=== PATIENT | male | born 1955 | race Caucasian/White ===

== ENCOUNTER 2022-05-17 09:39 | Emergency (ER) | payer MEDICARE, SELFPAY ==
--- NOTE | ~2022-05-17 | XR_ITS ---
EXAMINATION: XR chest 2V DATE: 05/17/2022 10:21 INDICATION: Shortness of breath. TECHNIQUE: Frontal and lateral views of the chest were obtained. COMPARISON: Chest CT 12/01/2017 FINDINGS: There is mild atelectasis in right mid and lower lung zones and left lower lung zone. No pl eural effusion or pneumothorax. The heart size is normal. There are old healed right rib fractures. IMPRESSION: 1. Mild atelectasis in right mid and lower lung zones and left lower lung zone. Reviewed, dictated and finalized at location A.
[2022-05-17 09:38] VITALS: BP 150/92; PULSE 101; RESP 20; TEMP 37.2; O2SAT 96
[2022-05-17 09:47] VITALS: O2SAT 96
[2022-05-17 09:48] VITALS: PULSE 100
--- NOTE | 2022-05-17 09:51 | ECG_ITS ---
Measurements Intervals [place] Rate: 102 P: 34 CA: 159 QRS: -63 QRSD: 83 T: 51 QT: 336 QTc: 438 Interpretive Statements SINUS TACHYCARDIA PREVIOUS INFERIOR WALL SC ABNORMAL ECG NO PREVIOUS ECG AVAILABLE FOR COMPARISON Electronically Signed On 05-17-2022 17:03:07 CDT by Kamran Powell M.D.
[2022-05-17 09:58] LABS: Basophils Absolute Auto 0.1 K/mm3 (0.0-0.1); Basophils Percent Auto 1.1 % (0.2-1.2); Eosinophils Absolute Auto 0.3 K/mm3 (0-0.3); Eosinophils Percent Auto 5.3 % (0-4.4); Hemoglobin 15.1 g/dL (14.0-18.0); Immature Granulocyte Absolute 0.04 K/mm3 (0.00-0.031); Immature Granulocyte Percent A 0.8 % (0-0.5); Lymphocytes Absolute Auto 1.01 K/mm3 (0.9-3.2); Lymphocytes Percent Auto 19.1 % (18.3-44.2); Mean Corpuscular HGB Conc 32.1 g/dl (32-36); Mean Corpuscular Hemoglobin 29.7 pg (26-34); Mean Corpuscular Volume 92.5 fl (80-100); Mean Platelet Volume 9.2 fl (7.4-10.4); Monocytes Absolute Auto 0.6 K/mm3 (0.1-0.6); Monocytes Percent Auto 11.7 % (2.6-8.5); Neutrophils Absolute Auto 3.3 K/mm3 (1.3-6.7); Platelet Count Result 230 k/mm3 (150-375); Red Blood Count 5.08 M/mm3 (4.6-6.20); White Blood Count 5.3 K/mm3 (4.5-10.0)
--- NOTE | 2022-05-17 10:07 | ED.SOB ---
HPI - SOB/Dyspnea General Chief Complaint: Shortness of Breath/Dyspnea Stated Complaint: resp distress Time Seen by Provider: 05/17/22 10:00 History of Present Illness HPI Narrative: Pt presents with progressively worsening SOB over the last several months. Pt stopped smoking in October and feels like it has been getting worse since then. Pt denies fever or CP. Pt has not seen a physician for any of this. Pt also feels like he is unable to fully void his urine and that has gotten much worse over the last couple of days. Pt denies CP ro fever. Related Data Allergies Allergy/AdvReac Type Severity Reaction Status Date / Time No Known Allergies Allergy Verified 05/17/22 09:49 Review of Systems Review of Systems: All systems reviewed & are unremarkable except as noted in HPI and below PMFSH Past Medical History Medical History Arthritis Back pain Hepatitis Surgical History Surgical History History of cholecystectomy History of total hip replacement Family History Family History Father Family history of blood dyscrasia Family history of alcoholism Family history of coronary artery disease Mother Hypertension Family history of cardiovascular disease Social History Social History Smoking status: Current every day smoker Tobacco type: cigarettes Alcohol intake: current Substance use: never Substance use type: does not use Exam Const: General: no acute distress Nutritional Appearance: obese Orientation/consciousness: patient oriented x3 Limitations: no limitations Eyes: Conjunctivae: conjunctivae normal EOM: EOMs intact bilaterally Neck: Neck: normal visual inspection and no lymphadenopathy Chest: Chest palpation & inspection: normal inspection of the chest Resp: Effort & Inspection: normal respiratory effort Auscultation: diminished lung sounds Cardio: Rate: regular rate Rhythm: regular rhythm GI: GI Palp: Yes Soft to palpation Auscultation: normal bowel sounds Skin: General skin exam: normal color Rashes: no rashes Neuro: General: patient oriented x3 and moves all extremities Speech: normal speech Extrem: General: edema Psych: Mental Status: mental status grossly normal Affect: normal affect Attitude: cooperative Course Vital Signs Vital signs: Vital Signs Temperature 98.9 F 05/17/22 09:38 Pulse Rate 101 H 05/17/22 09:38 Respiratory Rate 20 05/17/22 09:38 Blood Pressure 150/92 H 05/17/22 09:38 Pulse Oximetry 96 05/17/22 09:38 Oxygen Delivery Nasal Cannula 05/17/22 09:38 Oxygen Flow Rate 6 05/17/22 09:38 Temperature 98.9 F 05/17/22 09:38 Pulse Rate 98 05/17/22 13:59 Respiratory Rate 20 05/17/22 13:59 Blood Pressure 101/81 05/17/22 13:59 Pulse Oximetry 95 05/17/22 13:59 Oxygen Delivery Nasal Cannula 05/17/22 09:47 Oxygen Flow Rate 6 05/17/22 09:47 MDM - SOB/Dyspnea Lab Data Result diagrams: 05/17/22 10:25 05/17/22 10:25 Labs: Lab Results 05/17/22 05/17/22 05/17/22 Range/Units 09:52 09:52 10:25 WBC 5.3 5.3 (4.5-10.0) K/mm3 RBC 5.08 5.06 (4.6-6.20) M/mm3 Hgb 15.1 14.9 (14.0-18.0) g/dL Hct 47.0 46.5 (42.0-52.0) % MCV 92.5 91.9 (80-100) fl MCH 29.7 29.4 (26-34) pg MCHC 32.1 32.0 (32-36) g/dl RDW 14.0 13.9 (11.5-14.5) % Plt Count 230 238 (150-375) k/mm3 MPV 9.2 9.4 (7.4-10.4) fl Immature Gran % (Auto) 0.8 H 0.8 H (0-0.5) % Neut % (Auto) 62.0 63.5 (45.5-73.1) % Lymph % (Auto) 19.1 18.4 (18.3-44.2) % [place] % (Auto) 11.7 H 11.2 H (2.6-8.5) % Eos % (Auto) 5.3 H 5.1 H (0-4.4) % Baso % (Auto) 1.1 1.0 (0.2-1.2) % Lymph # (Auto) 1.01 0.97 (0.9-3.2) K/mm3 [place] # (Auto) 0.6 0.6 (0.1
[2022-05-17] MEDS: ALBUTEROL SULFATE NEB 2.5 MG/3 ML INH 5 MG INHALATION (10:14)
[2022-05-17] MEDS: IPRATROPIUM BR 0.02% INH SOLN 0.5 MG/2.5 ML VIAL INHALATION (10:15)
[2022-05-17 10:19] LABS: Alanine Aminotransferase 27 U/L (6-50); Albumin Level 4.1 g/dL (3.5-5.1); Alkaline Phosphatase 77 U/L (38-126); Anion Gap 8 mmol/L (8-16); Aspartate Amino Transferase 44 U/L (17-59); Bilirubin,Total 1.2 mg/dL (0.2-1.3); Blood Urea Nitrogen 13 mg/dL (9-20); Calcium 9.4 mg/dL (8.4-10.2); Carbon Dioxide 37 mmol/L (22-30); Chloride 88 mmol/L (98-107); Estimated CRCL calculation 119 ml/min; Estimated Glomerular Filt Rate > 60; Glucose 177 mg/dL (65-110); Potassium 4.8 mmol/L (3.4-5.0); Sodium 133 mmol/L (137-145)
[2022-05-17 10:23] VITALS: PULSE 94; RESP 34
[2022-05-17 10:49] LABS: Basophils Absolute Auto 0.1 K/mm3 (0.0-0.1); Eosinophils Absolute Auto 0.3 K/mm3 (0-0.3); Eosinophils Percent Auto 5.1 % (0-4.4); Hematocrit 46.5 % (42.0-52.0); Hemoglobin 14.9 g/dL (14.0-18.0); Immature Granulocyte Absolute 0.04 K/mm3 (0.00-0.031); Immature Granulocyte Percent A 0.8 % (0-0.5); Lymphocytes Absolute Auto 0.97 K/mm3 (0.9-3.2); Lymphocytes Percent Auto 18.4 % (18.3-44.2); Mean Corpuscular Hemoglobin 29.4 pg (26-34); Mean Corpuscular Volume 91.9 fl (80-100); Mean Platelet Volume 9.4 fl (7.4-10.4); Monocytes Absolute Auto 0.6 K/mm3 (0.1-0.6); Monocytes Percent Auto 11.2 % (2.6-8.5); Neutrophils Absolute Auto 3.3 K/mm3 (1.3-6.7); Neutrophils Percent Auto 63.5 % (45.5-73.1); Platelet Count Result 238 k/mm3 (150-375); Red Blood Count 5.06 M/mm3 (4.6-6.20); Red Cell Distribution Width 13.9 % (11.5-14.5); White Blood Count 5.3 K/mm3 (4.5-10.0)
[2022-05-17 10:58] LABS: Alanine Aminotransferase 27 U/L (6-50); Alkaline Phosphatase 82 U/L (38-126); Anion Gap 8 mmol/L (8-16); Aspartate Amino Transferase 31 U/L (17-59); Bilirubin,Total 1.1 mg/dL (0.2-1.3); Blood Urea Nitrogen 12 mg/dL (9-20); Calcium 9.4 mg/dL (8.4-10.2); Carbon Dioxide 36 mmol/L (22-30); Chloride 89 mmol/L (98-107); Estimated CRCL calculation 119 ml/min; Estimated Glomerular Filt Rate > 60; Glucose 169 mg/dL (65-110); Magnesium 1.7 mg/dL (1.6-2.3); Potassium 4.5 mmol/L (3.4-5.0); Sodium 133 mmol/L (137-145)
[2022-05-17 11:03] LABS: Partial Thromboplastin Time 26.6 SECONDS (22.3-36.8)
[2022-05-17 11:10] LABS: NT Pro B Type Natriuretic Pept 342 pg/mL (5-100); Troponin I < 0.012 ng/mL (0.000-0.034)
[2022-05-17 12:44] LABS: Appearance Urine Slightly Cloudy (Clear); Bilirubin Urine Negative (Negative); Color Urine Yellow (Yellow); Glucose Urine UA Negative (Negative); Ketones Urine Negative (Negative); Leukocyte Esterase Ur 3+ LEU/UL (Negative); Nitrate Urine Negative (Negative); Protein Urine Negative (Negative); Specific Grav Ur 1.015 (1.001-1.035); Urobilinogen Urine 0.2 mg/dL (<2.0)
[2022-05-17 12:45] LABS: Add Urine Microscopic? YES; Blood Urine Trace-Intact (Negative)
[2022-05-17 12:47] LABS: Bacteria Urine Trace /hpf; Budding Yeast Urine Present /hpf; Mucus Urine Rare /lpf; WBC Clumps Urine Present /HPF; WBC Urine >75 /hpf
[2022-05-17 13:10] VITALS: BP 113/82; PULSE 93; RESP 20; O2SAT 98
[2022-05-17 13:59] VITALS: BP 101/81; PULSE 98; RESP 20; O2SAT 95
== END 2022-05-17 14:01 | disposition home or self-care (01) ==
PROVIDERS: Emergency Provider Emergency Medicine; PCP Internal Medicine
DX: J44.9 Chronic obstructive pulmonary disease, unspecified (principal); N40.1 Benign prostatic hyperplasia with lower urinary tract symptoms; R35.0 Frequency of micturition; M19.90 Unspecified osteoarthritis, unspecified site; Z87.891 Personal history of nicotine dependence; Z96.649 Presence of unspecified artificial hip joint; Z79.01 Long term (current) use of anticoagulants; R00.0 Tachycardia, unspecified; R94.31 Abnormal electrocardiogram [ECG] [EKG]
CPT/HCPCS: 36415; 71046; 80053; 81001; 83735; 83880; 84484; 85025; 85610; 85730; 87086; 93005; 94640; 99284

== ENCOUNTER 2022-10-19 06:03 | Inpatient (IN) | payer MEDICARE, SELFPAY ==
[2022-10-19] VITALS (27 sets, daily range): BP systolic 114–171; BP diastolic 55–93; PULSE 102–124; RESP 16–90; TEMP 36.6–36.8; O2SAT 90–100
--- NOTE | ~2022-10-19 | XR_ITS ---
EXAMINATION: XR chest 1V portable DATE: 10/19/2022 07:07 INDICATION: Shortness of breath. TECHNIQUE: A single frontal view of the chest was obtained. COMPARISON: Chest single view 05/17/2022, chest CT 12/01/2017 FINDINGS: There is mild atelectasis in the lower lung zones. No pleural effusion or pneumothorax. The heart size is normal. There are old healed right rib fractures. IMPRESSION: 1. Mild atelectasis in the lower lung zones. Reviewed, dictated and finalized at location A. UCTION WORKER
--- NOTE | ~2022-10-19 | CT_ITS ---
EXAMINATION: CTA chest PE protocol DATE: 10/19/2022 08:02 INDICATION: Hypoxia. Tachycardia. TECHNIQUE: Computed tomography angiography (CTA) of the chest was performed with 100 mL Omnipaque-350 intravenous contrast timed to evaluate the pulmonary arteries. Coronal maximum intensity projection 3D-reconstructions were created by the technologist. Automated exposure control and iterative reconst ruction technique were employed. The dose-length product was 2046.68 mGy-cm. COMPARISON: Chest CT 12/01/2017 FINDINGS: There are mild groundglass opacities in the upper lobes. There is atelectasis in the lungs bilaterally, worst in the lower lobes. There are calcified pleural plaques on the right. There is a t race left pleural effusion. The heart size is normal. No pericardial effusion. There are coronary art hattie calcifications. There is no pulmonary embolus. There are changes of cholecystectomy. There is a m oderate-sized sliding hiatal hernia. There are old healed right rib fractures. There is severe right glenohumeral joint osteoarthritis. There is severe cervical and thoracic spondylosis. IMPRESSION: 1. No pulmonary embolus. Sensitivity is mildly decreased by motion artifact. 2. Mild groundglass opacities in the upper lobes, consistent with inflammation/infection versus mild pulmonary edema. 3. Moderate-sized sliding hiatal hernia. Reviewed, dictated and finalized at location A. Y BACTERIOLOGIST IMPRESSION: 1. No pulmonary embolus. Sensitivity is mildly decreased by motion artifact. 2. Mild groundglass opacities in the upper lobes, consistent with inflammation/ infection versus mild pulmonary edema. 3. Moderate-sized sliding hiatal hernia.
--- NOTE | 2022-10-19 06:39 | ED.GENADULT ---
HPI - General Adult General Chief complaint: Fall <Shahida Johns MD - Last Filed: 10/20/22 19:11> Stated complaint: fall, side pain <Shahida Johns MD - Last Filed: 10/20/22 19:11> Time Seen by Provider: 10/19/22 06:14 <Shahida Johns MD - Last Filed: 10/20/22 19:11> History of Present Illness HPI narrative: Patient is a 66-year-old male with a history of COPD, prior PE no longer on anticoagulation, BPH, hyperlipidemia presenting with multiple complaints. Patient reports that he fell approximately a week ago and since then he has had right-sided chest pain. He states that he believes he broke his ribs. Patient is also concerned that he has had chocolate milk urine for the last day. States that he has had difficulty with urinary retention. He is concerned he has a UTI. On arrival, patient noted to be tachypneic and hypoxic down in the 80s. States that he has a history of pulmonary emboli but he is no longer on anticoagulation. He denies fevers, headache, chest pain, lightheadedness, abdominal pain, vomiting, diarrhea, leg swelling. <Shahida Johns MD - Last Filed: 10/20/22 19:11> Related Data Home medications: Home Medications Medication Instructions Recorded Confirmed atorvastatin 10 mg tablet 10 mg PO DAILY 10/19/22 10/19/22 lisinopril 20 mg tablet 20 mg PO DAILY 10/19/22 10/19/22 psyllium 2 packet PO QPM 10/19/22 10/19/22 <Shahida Johns MD - Last Filed: 10/20/22 19:11> Allergies/adverse reactions: Allergies Allergy/AdvReac Type Severity Reaction Status Date / Time No Known Allergies Allergy Verified 10/19/22 13:11 <Shahida Johns MD - Last Filed: 10/20/22 19:11> Review of Systems Review of Systems: All systems reviewed & are unremarkable except as noted in HPI and below <Shahida Johns MD - Last Filed: 10/20/22 19:11> [facility] Past Medical History Medical History: Medical History Arthritis Back pain Hepatitis Urinary retention <Shahida Johns MD - Last Filed: 10/20/22 19:11> Surgical History Surgical History: Surgical History History of cholecystectomy History of total hip replacement <Shahida Johns MD - Last Filed: 10/20/22 19:11> Family History Family History: Family History Father Family history of blood dyscrasia Family history of alcoholism Family history of coronary artery disease Mother Hypertension Family history of cardiovascular disease <Shahida Johns MD - Last Filed: 10/20/22 19:11> Social History Social History: Social History Smoking packs per day: 2 Smoking cigarettes per day: 40.0 Years smoked: 10 Smoking pack-years: 20.00 Smoking status: Former smoker Tobacco type: cigarettes Smoking end date: 09/03/21 Alcohol intake: current Substance use: never Substance use type: does not use Lack of Transportation: No Lack of Food: Never True Current Housing: I Have Housing Concerned About Future Housing: No Difficulty Paying Gas/Electric Bills: No Difficulty Paying for Meds: No Currently Unemployed: No Education: Grade School Difficulty w/ Childcare or Family Care: No Spiritual care concerns: No <Shahida Johns MD - Last Filed: 10/20/22 19:11> Exam Narrative: GENERAL: Chronically ill-appearing, in no acute distress HEAD: Normocephalic, atraumatic. EYES: PERRLA and EOMI. ENT: Nares clear, no rhinorrhea or epistaxis. Mucous membranes moist. NECK: Supple. CHEST: Minimal air movement bilaterally, no wheezing or crackles. Tender over lateral right lower ribs HEART: Tachycardic, regular rhythm ABDOMEN: Soft, nontender, nondistended, normal active bowel sounds. EXTREMITIES: Normal range of motion. Bilateral
[2022-10-19] MEDS: ALBUTEROL SULFATE NEB 2.5 MG/3 ML INH 10 MG INHALATION (06:40)
[2022-10-19] MEDS: IPRATROPIUM BR 0.02% INH SOLN 0.5 MG/2.5 ML VIAL INHALATION ×2 (06:40→19:15)
[2022-10-19 06:41] LABS: Appearance Urine Turbid (Clear); Bilirubin Urine Negative (Negative); Blood Urine 2+ (Negative); Color Urine Yellow (Yellow); Glucose Urine UA Negative (Negative); Ketones Urine Negative (Negative); Leukocyte Esterase Ur 3+ LEU/UL (Negative); Nitrate Urine Negative (Negative); Protein Urine 3+ mg/dL (Negative); pH Urine 8.5 (5.0-9.0)
--- NOTE | 2022-10-19 06:44 | ECG_ITS ---
Measurements Intervals [place] Rate: 104 P: 66 TX: 163 QRS: -60 QRSD: 80 T: 41 QT: 319 QTc: 421 Interpretive Statements SINUS TACHYCARDIA VENTRICULAR PREMATURE COMPLEX POOR R WAVE PROGRESSION, ANTERIOR LEADS BORDERLINE ECG COMPARED TO ECG 05/17/2022 09:52:12 NO SIGNIFICANT CHANGES Electronically Signed On 10-19-2022 7:43:47 RESEARCH TECHNOLOGIST by Mehul Storm D.O.
[2022-10-19 06:51] LABS: Bacteria Urine 3+ /hpf; Mucus Urine Rare /lpf; RBC Urine >75 /hpf (0-2); WBC Clumps Urine Present /HPF; WBC Urine >75 /hpf
[2022-10-19 06:57] LABS: Anion Gap 4 mmol/L (8-16); Blood Urea Nitrogen 16 mg/dL (9-20); Calcium 8.7 mg/dL (8.4-10.2); Carbon Dioxide 34 mmol/L (22-30); Chloride 94 mmol/L (98-107); Estimated Glomerular Filt Rate > 60; Glucose 196 mg/dL (65-110); Lactic Acid Reflex 1.2 mmol/L (0.7-2.0); Potassium 4.5 mmol/L (3.4-5.0); Sodium 132 mmol/L (137-145)
[2022-10-19 07:08] LABS: Add Urine Microscopic? YES
[2022-10-19] MEDS: methylPREDNISolone SOD SUCC 125 MG VIAL IV PUSH (07:11)
[2022-10-19 07:24] LABS: Influenza A QL RT-PCR Negative (Negative); Influenza B QL RT-PCR Negative (Negative); SARS-CoV-2 RNA PCR Negative
[2022-10-19 07:31] LABS: NT Pro B Type Natriuretic Pept 304 pg/mL (19.9-100); Troponin I < 0.012 ng/mL (0.000-0.034)
[2022-10-19 07:42] LABS: INR 1.1; Prothrombin Time 13.3 Seconds (11.1-14.7)
[2022-10-19 07:44] LABS: Partial Thromboplastin Time 26.6 SECONDS (22.3-36.8)
--- NOTE | 2022-10-19 08:25 | PM.IMHP ---
H&P: HPI History of Present Illness Date/Time: 10/19/22 08:25 Chief Complaint: sob Narrative: 66-year-old male with a history of COPD, distant PE no longer on anticoagulation, BPH, hyperlipidemia presenting with multiple complaints. He states he has been feeling progressively worse over the last few weeks. He feels more short of breath and like he cannot completely empty his bladder. He also notes that his urine looks dark like chocolate milk and that he is having some discomfort with urination. He denies orthopnea or lower extremity edema. He does feel like he has been getting more weak over the last few weeks with a decreased appetite but denies any dizziness or unsteadiness. He denies fevers or chills. No nausea, vomiting or diarrhea. He does admit to some dysuria, urinary retention and that his urine has had a different odor and color the last few days. No sick contacts or recent travel. Patient reports that he had a mechanical fall approximately a week ago and since then he has had right-sided chest pain and is concerned he broke some ribs. Of note, the patient presented for similar complaints of progressively worsening shortness of breath and urinary retention in April of 2022. At that time, he was treated for a possible UTI with Macrobid and started on Flomax for the urinary retention and albuterol for his shortness of breath and referred back to his PCP. In the ER, his urinalysis was abnormal and he was found to be tachypneic and hypoxic with his pulse ox in the 80s. He was placed on 3 L nasal cannula and symptoms improved rapidly. Chest x-ray showed atelectasis in the lower lung zones and old healed right rib fractures. CTA was ordered and showed no PE, ground-glass opacities in the upper lobes concerning for infection versus edema as well as multiple right-sided rib fractures. BMP showed a sodium of 132 and a normal BUN/Cr, abnormal urinalysis concerning for UTI, flu/COVID negative, CTA neg for PE but consistent with PNA vs edema. CBC was essentially within normal limits. He did have elevated carbon dioxide on his BMP and so an ABG was ordered showing hypercapnia. He was given a dose of Solu-Medrol and started on Rocephin and azithromycin in the ER to cover for pneumonia and UTI. Urine culture is pending. Pulmonology consult was placed. Review of Systems Review of Systems: 12 point review of systems was assessed and was negative except as noted in the HPI [facility] Past Medical History Medical History Arthritis Back pain Hepatitis Urinary retention Surgical History Surgical History History of cholecystectomy History of total hip replacement Family History Family History Father Family history of blood dyscrasia Family history of alcoholism Family history of coronary artery disease Mother Hypertension Family history of cardiovascular disease Social History Social History Smoking packs per day: 2 Smoking cigarettes per day: 40.0 Years smoked: 10 Smoking pack-years: 20.00 Smoking status: Former smoker Tobacco type: cigarettes Smoking end date: 09/03/21 Alcohol intake: current Substance use: never Substance use type: does not use Lack of Transportation: No Lack of Food: Never True Current Housing: I Have Housing Concerned About Future Housing: No Difficulty Paying Gas/Electric Bills: No Difficulty Paying for Meds: No Currently Unemployed: No Education: Grade School Difficulty w/ Childcare or Family Care: No Spiritual care concerns: No Meds Home Medications and Allergies Home Medications Medication Instructions Recorded Confirmed Type umeclidinium 62.5 mcg-vilanterol 1 inh inhalation DAILY #60 ea 09/16/22 10/19/22 Rx 25 mcg/actuation
[2022-10-19 09:19] LABS: Basophils Absolute Auto 0.1 K/mm3 (0.0-0.1); Basophils Percent Auto 0.5 % (0.2-1.2); Eosinophils Absolute Auto 0.3 K/mm3 (0-0.3); Eosinophils Percent Auto 2.9 % (0-4.4); Hematocrit 46.8 % (42.0-52.0); Hemoglobin 15.3 g/dL (14.0-18.0); Immature Granulocyte Absolute 0.05 K/mm3 (0.00-0.031); Immature Granulocyte Percent A 0.5 % (0-0.5); Lymphocytes Absolute Auto 1.04 K/mm3 (0.9-3.2); Lymphocytes Percent Auto 11.3 % (18.3-44.2); Mean Corpuscular HGB Conc 32.7 g/dl (32-36); Mean Corpuscular Hemoglobin 30.5 pg (26-34); Mean Corpuscular Volume 93.2 fl (80-100); Mean Platelet Volume 10.5 fl (7.4-10.4); Monocytes Absolute Auto 0.9 K/mm3 (0.1-0.6); Neutrophils Absolute Auto 6.9 K/mm3 (1.3-6.7); Neutrophils Percent Auto 74.8 % (45.5-73.1); Platelet Count Result 233 k/mm3 (150-375); Red Blood Count 5.02 M/mm3 (4.6-6.20); Red Cell Distribution Width 13.3 % (11.5-14.5); White Blood Count 9.2 K/mm3 (4.5-10.0)
[2022-10-19] MEDS: SODIUM CHLORIDE 0.9% IV 1,000 ML 999 ML IV CONT (09:42)
[2022-10-19] MEDS: IPRATROPIUM BR 0.02% INH SOLN 0.5 MG/2.5 ML VIAL 1 MG INHALATION (10:14)
[2022-10-19] MEDS: ALBUTEROL SULFATE NEB 2.5 MG/3 ML INH 15 MG INHALATION (10:15)
[2022-10-19 10:35] LABS: Troponin I < 0.012 ng/mL (0.000-0.034)
--- NOTE | 2022-10-19 13:03 | ADMGEN ---
This patient, Rupesh Reddy, was admitted to [facility] Surg Room 307-02. Report received from Katya BLANKENSHIP. Patient/family oriented to hospital policies and general routines including ID bracelet, bed and alarms, visiting hours, pain management, procedures, bathroom and other care routines, personal items, smoking policy, room service/diet, and visiting hours. Information on how to activate the Rapid Response Team has been discussed. Patient/Family are encouraged to report perceived risks to care and to ask questions if they do not understand what they are told or what they should do.
--- NOTE | 2022-10-19 16:07 | PM.CNPUL ---
Assessment and Plan Assessment and plan (1) Chronic obstructive pulmonary disease: Qualifiers: COPD type: unspecified COPD Qualified Code(s): J44.9 - Chronic obstructive pulmonary disease, unspecified Code(s): J44.9 - Chronic obstructive pulmonary disease, unspecified Status: Acute Assessment and Plan: Patient with a history of tobacco use at 108 pack years, quit September 2021, I have no PFTs. There is no bullous emphysema noted on his CT scan from 10/19/2021. Patient carries a diagnosis of COPD and is maintained on Anoro as an outpatient. Patient has shortness of breath after he had right chest wall trauma with rib fractures, no change in his chronic cough and phlegm production at 2 to 3 times a day and no wheezing. Currently the patient tells me he is breathing back to his baseline. I do not think this is a COPD exacerbation at this time I will discontinue the Solu-Medrol. I will continue the albuterol and ipratropium nebulizers at Q 6 hours. I do not feel he needs antibiotics from a pulmonary perspective. He does have urinary tract infection. Patient is currently on 2 L nasal cannula oxygen with saturations 93%. His hypoxemia may be related to COPD, rib fractures with splinting and lower lobe atelectasis. goal saturation 90-94%. Will follow his oxygen requirements during this hospitalization and he should have a formal home O2 assessment prior to discharge. Recommend ABG to assess for acute and or chronic hypercarbic respiratory failure. Regarding his acute right rib fractures the pain is controlled with morphine and hydrocodone at this time. will follow with you. History of Present Illness History of Present Illness Consult date: 10/19/22 Chief complaint: Pneumonia/UTI/Hypoxic Respiratory Failure Narrative: 10/19/2022: This is a new pulmonary consult for respiratory failure and suspected COPD 66-year-old with a history of arthritis, BPH, PE now off of anticoagulation, and COPD (108 PY, quit 09/2021) maintained on Anoro Ellipta. Patient saw his primary care physician on 07/24/2021 and the office note states that he has COPD but he declined PFTs, 6 minutes walk, low-dose CT scan. At baseline patient is mostly wheelchair bound and does not walk. He has a chronic cough and chronic phlegm production at 2 to 3 times a day and described as clear. He does not wheeze. Four days prior to admission his family member attempted to pick him up and he experienced acute right-sided musculoskeletal pain and thought that he broke his ribs. At that time he had shortness of breath due to the rib pain. He denied fever, chills, rigors and states that he has had no change in his cough, clear from production and no wheezing. He denies any hemoptysis. Patient presented to the emergency room on 10/19 complaining of right-sided chest pain decreased urine output, and chocolate milk colored urine. Patient saturations on room air were in the mid 80s. His white blood cell count was 9.2 with 2.9% eosinophils, his creatinine was 0.8, his troponin was negative, his BNP was 304 and the patient had a CT angiogram of the chest that showed no PE, mild upper lobe ground-glass infiltrates and old right-sided rib fractures with acute 8 through 11th rib fractures. urinalysis was consistent with a UTI. Patient was treated for COPD exacerbation with bronchodilators and IV steroids. Was treated with ceftriaxone and azithromycin for possible pneumonia and UTI. 10/19 Currently the patient tells me that his breathing normal now he has less pain on his right side his saturations on 3 L nasal cannula was 96%. I decreased him to 2 L nasal cannula saturations were 93%. DATA 10/19/2022 EXAMINATION: CTA chest PE protocol DATE: 10/19/2022 08:02 INDICATION: Hypoxia. Tachycardia. TECHNIQUE: Computed tomography angiography (CTA) of the chest was performed with 100 mL Omnipaque-350 intravenous
--- NOTE | 2022-10-19 16:33 | PCRCNOTE ---
Window of time for administration has passed. See next scheduled administration.
[2022-10-19 16:42] LABS: Alveolar/Arterial O2 Gradient 73.9 mmHg; Base Excess ABG 4.2 mEq/l (+/-2.0); Fractional Inspired Oxygen 28 %; HCO3 ABG 30.4 mEq/l (22.0-26.0); Oxygen Content ABG 19.7 %vol (16.0-22.0); Oxygen Saturation ABG 92.3 % (95.0-100.0); Oxyhemoglobin 91.1 % THb (90.0-100.0); PCO2 ABG 51.4 mmHg (35.0-45.0); PO2 ABG 65.1 mmHg (80.0-100.0); PO2 FiO2 Ratio Arterial Blood 2.33 %; Total Hemoglobin 15.4 g/dL (12.0-18.0)
[2022-10-19 16:43] LABS: Device NASAL CANNULA; Modified Allen's Test Pass; Site Drawn RIGHT RADIAL
[2022-10-19] MEDS: PSYLLIUM POWDER PACKET 2 PACKET PO (18:06)
[2022-10-19] MEDS: ACETAMINOPHEN 325 MG TABLET 650 MG PO (18:39)
[2022-10-19] MEDS: ALBUTEROL SULFATE NEB 2.5 MG/3 ML INH INHALATION (19:15)
[2022-10-19 19:22] LABS: Hemoglobin A1C 7.4 % (<5.7)
[2022-10-19] MEDS: HYDROcodone/acetaminophen (*CRX) 5-325 MG TABLET 1 TAB PO (19:52)
[2022-10-19 20:32] LABS: Glucose Point of Care 351 mg/dl (65-105)
[2022-10-19] MEDS: INSULIN ASPART (*BKC) 100 UNITS/ML 6 UNITS SUB-Q (20:47)
[2022-10-20] VITALS (9 sets, daily range): BP systolic 106–120; BP diastolic 57–93; PULSE 77–112; RESP 18–20; TEMP 36.4–37.2; O2SAT 90–100
--- NOTE | 2022-10-20 05:48 | PCRCNOTE ---
Apnea monitor was placed on patient overnight. Patient had pulled oximetry off after 1 hour. Study will be redone 10/20/2022.
[2022-10-20 06:11] LABS: Basophils Percent Auto 0.2 % (0.2-1.2); Eosinophils Percent Auto 0.1 % (0-4.4); Hemoglobin 13.7 g/dL (14.0-18.0); Immature Granulocyte Absolute 0.09 K/mm3 (0.00-0.031); Immature Granulocyte Percent A 0.8 % (0-0.5); Lymphocytes Absolute Auto 1.18 K/mm3 (0.9-3.2); Lymphocytes Percent Auto 10.4 % (18.3-44.2); Mean Corpuscular HGB Conc 33.4 g/dl (32-36); Mean Corpuscular Hemoglobin 30.9 pg (26-34); Mean Corpuscular Volume 92.3 fl (80-100); Mean Platelet Volume 9.8 fl (7.4-10.4); Monocytes Absolute Auto 0.9 K/mm3 (0.1-0.6); Monocytes Percent Auto 8.1 % (2.6-8.5); Neutrophils Absolute Auto 9.1 K/mm3 (1.3-6.7); Neutrophils Percent Auto 80.4 % (45.5-73.1); Platelet Count Result 213 k/mm3 (150-375); Red Blood Count 4.44 M/mm3 (4.6-6.20); Red Cell Distribution Width 13.1 % (11.5-14.5); White Blood Count 11.3 K/mm3 (4.5-10.0)
[2022-10-20 06:21] LABS: Alanine Aminotransferase 30 U/L (6-50); Albumin Level 3.8 g/dL (3.5-5.1); Alkaline Phosphatase 63 U/L (38-126); Anion Gap 3 mmol/L (8-16); Aspartate Amino Transferase 29 U/L (17-59); Bilirubin,Total 0.8 mg/dL (0.2-1.3); Blood Urea Nitrogen 21 mg/dL (9-20); Calcium 8.5 mg/dL (8.4-10.2); Carbon Dioxide 36 mmol/L (22-30); Chloride 94 mmol/L (98-107); Estimated CRCL calculation 153 ml/min; Estimated Glomerular Filt Rate > 60; Glucose 201 mg/dL (65-110); Potassium 4.7 mmol/L (3.4-5.0); Sodium 133 mmol/L (137-145)
[2022-10-20 06:39] LABS: Vitamin D 25 Hydroxy 49.1 ng/mL
[2022-10-20] MEDS: ALBUTEROL SULFATE NEB 2.5 MG/3 ML INH INHALATION (07:34)
[2022-10-20] MEDS: IPRATROPIUM BR 0.02% INH SOLN 0.5 MG/2.5 ML VIAL INHALATION (07:34)
[2022-10-20] MEDS: UMECLIDINIUM/VILANTEROL 62.5-25 MCG ELLIPTA 1 PUFF INHALATION (07:34)
[2022-10-20 08:51] LABS: Glucose Point of Care 177 mg/dl (65-105)
--- NOTE | 2022-10-20 09:58 | ECHO_ITS ---
Patient Info Name: Rupesh Reddy Age: 67 years : 1955 Gender: Male Ht: 72 in Wt: 430 lbs BSA: 3.26 m2 HR: 124 bpm BP: 118 / 57 mmHg Technical Quality: Poor Exam Date: 10/20/2022 1:17 PM Exam Location: [facility] Patient Status: Inpatient Admit Date: 10/20/2022 Staff Ordering Physician: Kamran Gonzalez MD Music Director: Neno Marr RDCS, RT Attending Provider: Margarita Vick DO Referring Physician: Carlos KENNEDY; Exam Type: CA echo dop color flow w con Study Info Indications I50.9 - Heart failure, unspecified R06.00 - Dyspnea, unspecified Complete two-dimensional, color flow and Doppler transthoracic echocardiogram is performed with contrast to opacify the left ventricle and to improve the deliniation of the left ventricle endocardial borders. Summary 1. Technically suboptimal study due to poor sonographic images. 2. Definity contrast administered did not improve wall motion interpretation. 3. Left ventricular chamber dimension is normal. 4. Left ventricular systolic function is normal, estimated at 60-65%. 5. There is mildly increased left ventricular wall thickness. 6. The left ventricular diastolic function is grade I diastolic dysfunction. 7. E/e' 6 is not elevated. 8. Left atrial chamber dimension is mildly enlarged. 9. Right atrial chamber dimension is mildly enlarged. 10. No pulmonary hypertension, estimated pulmonary arterial systolic pressure is 35 mmHg. Left Ventricle E/e' 6 is not elevated. Definity contrast administered did not improve wall motion interpretation. Technically suboptimal study due to poor sonographic images. Left ventricular chamber dimension is normal. Left ventricular systolic function is normal, estimated at 60-65%. There is mildly increased left ventricular wall thickness. The left ventricular diastolic function is grade I diastolic dysfunction. Right Ventricle Right ventricular systolic function is normal based on normal TAPSE 3.4 cm. Right ventricular chamber dimension is not well visualized. Left Atria Left atrial chamber dimension is mildly enlarged. Right Atria Right atrial chamber dimension is mildly enlarged. Aortic Valve The aortic valve is not well visualized. There is no aortic valve stenosis. There is no aortic valve regurgitation. Pulmonic Valve There is no pulmonic regurgitation. Mitral Valve There is no mitral valve stenosis. There is no mitral valve regurgitation. Tricuspid Valve There is no tricuspid valve regurgitation. No pulmonary hypertension, estimated pulmonary arterial systolic pressure is 35 mmHg. Pericardium/Pleural There is no pericardial effusion. Inferior Vena Cava Inferior vena cava is not well visualized. Aorta The aortic root size at the sinus of Valsalva is not well visualized. Left Ventricular Outflow Tract Name Value Normal LVOT Doppler LVOT Peak Gradient 4 mmHg LVOT Mean Gradient 2 mmHg LVOT VTI 17.29 cm LVOT VTI/AV VTI Ratio 0.95 Mitral Valve Name Value Normal
--- NOTE | 2022-10-20 11:13 | PM.PNPUL ---
Progress Note: A&P Assessment and Plan (1) Chronic obstructive pulmonary disease: Qualifiers: COPD type: unspecified COPD Qualified Code(s): J44.9 - Chronic obstructive pulmonary disease, unspecified Code(s): J44.9 - Chronic obstructive pulmonary disease, unspecified Status: Acute Assessment and Plan: Patient with a history of tobacco use at 108 pack years, quit September 2021, I have no PFTs. There is no bullous emphysema noted on his CT scan from 10/19/2021. Patient carries a diagnosis of COPD and is maintained on Anoro as an outpatient. 10/19 Patient has shortness of breath after he had right chest wall trauma with rib fractures, no change in his chronic cough and phlegm production at 2 to 3 times a day and no wheezing. Currently the patient tells me he is breathing back to his baseline. I do not think this is a COPD exacerbation at this time I will discontinue the Solu-Medrol. I will continue the albuterol and ipratropium nebulizers at Q 6 hours. I do not feel he needs antibiotics from a pulmonary perspective. He does have urinary tract infection. Patient is currently on 2 L nasal cannula oxygen with saturations 93%. His hypoxemia may be related to COPD, rib fractures with splinting and lower lobe atelectasis. goal saturation 90-94%. Will follow his oxygen requirements during this hospitalization and he should have a formal home O2 assessment prior to discharge. Recommend ABG to assess for acute and or chronic hypercarbic respiratory failure. Regarding his acute right rib fractures the pain is controlled with morphine and hydrocodone at this time. 10/20 patient tells me he is breathing back to normal. He has his usual cough and productive in of clear phlegm with no wheezing. His white blood cell count is 11.3, creatinine is 0.7. ABG during the day yesterday on 2 L was 7.39/51/65. The patient does have evidence of hypercarbic respiratory failure with a PaCO2 of 51. He has current fractured right ribs with atelectasis and right-sided pleuritic pain, narcotic use, UTI which may be contributing to his hypercarbia. In addition he may have COPD and a sleep-related breathing disorder which will require outpatient PFTs and a split night sleep study. At this time I will not recommend nocturnal noninvasive ventilation until I can repeat a blood gas after he is at his baseline. This may take several weeks for him to resolve the rib fractures and to be pain free. Do not feel there is a COPD exacerbation or pneumonia. I have discontinued his azithromycin. He remains on ceftriaxone and has a UTI. I will discontinue his nebulizers and continue his Anoro Ellipta. I will order an echocardiogram. I will order an overnight oximetry on 2 L nasal cannula to assess his oxygen requirements at night. He will require home O2 assessment prior to discharge. Will follow with you. Subjective Date/time seen: 10/20/22 11:13 Interval history: 10/19/2022:? This is a new pulmonary consult for respiratory failure and suspected COPD ?66-year-old with a history of arthritis, BPH, PE? now off of anticoagulation,? and COPD (108 PY, quit 09/2021) maintained on Anoro Ellipta. ? Patient saw his primary care physician on 07/24/2021 and the office note states that he has COPD but he declined PFTs, 6 minutes walk, low-dose CT scan. ? At baseline patient is mostly wheelchair bound and does not walk.? He has a chronic cough and chronic phlegm production at 2 to 3 times a day and described as clear.? He does not wheeze. ? Four days prior to admission his family member attempted to pick him up and he experienced acute right-sided musculoskeletal pain and thought that he broke his ribs.? At that time he had shortness of breath due to the rib pain. He denied fever, chills, rigors and states that he has had no change in his cough, clear from production and no wheezing.? He denies any hemoptysis. ? [place] [facility] [place]
[2022-10-20 11:24] LABS: Glucose Point of Care 185 mg/dl (65-105)
--- NOTE | 2022-10-20 11:39 | PM.IMPN ---
Progress Note: A&P Assessment and Plan (1) Acute on chronic respiratory failure: Code(s): J96.20 - Acute and chronic respiratory failure, unspecified whether with hypoxia or hypercapnia Status: Acute Assessment and Plan: per pulm, hold off on abx, do not suspect pna no steroids, does not appear to be copd exac suspect atelectasis from rib fractures and shallow breathing 2/2 pain. Remains on 2L but probably could be weaned. Plan for overnight assessment on 2L. Home O2 evaluation tomorrow. Continue PT/OT. Home tomorrow if able Echo ordered. (2) Acute UTI: Code(s): N39.0 - Urinary tract infection, site not specified Status: Acute Assessment and Plan: UA noted. UCx pendign. Continue Rocephin, follow urine cx Continue flomax consult urology if retention noted (3) Chronic obstructive pulmonary disease: Qualifiers: COPD type: unspecified COPD Qualified Code(s): J44.9 - Chronic obstructive pulmonary disease, unspecified Code(s): J44.9 - Chronic obstructive pulmonary disease, unspecified Status: Acute Assessment and Plan: stable, appreciate pulm consult, suspect chronic hypercapnic resp failure apnealink tonight and home o2 eval could be d/c when ok with pulm for further outpatient management/workup for COPD/ROHAN Continue Anoro. (4) Rib fractures: Code(s): S22.49XA - Multiple fractures of ribs, unspecified side, initial encounter for closed fracture Status: Acute Assessment and Plan: PT/OT consult Pain control with tylenol and norco as needed Continue symptomatic care (5) Essential hypertension: Code(s): I10 - Essential (primary) hypertension Status: Acute Assessment and Plan: Blood pressure well controlled. Continue lisinopril (6) Mixed hyperlipidemia: Code(s): E78.2 - Mixed hyperlipidemia Status: Acute Assessment and Plan: LFTs normal. Continue Lipitor. (7) Type 2 diabetes mellitus without complications: Code(s): E11.9 - Type 2 diabetes mellitus without complications Status: Acute Assessment and Plan: A1c 7.4. The patient's blood glucose was reviewed on 10/20 Glucose remains well controlled. Continue AccuCheks covering with sliding scale. Hypoglycemia protocol available as needed. Continue current medications. 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 (9) Personal history of transient ischemic attack (TIA), and cerebral infarction without residual deficits: Code(s): Z86.73 - Personal history of transient ischemic attack (TIA), and cerebral infarction without residual deficits Status: Acute Assessment and Plan: distant h/o left temporoparietal occipital infarct, no residual symptoms. Continue statin. Not on ASA - possibly a trigger for his lung disease. Will discuss with patient. (10) Obesity (BMI 30-39.9): Code(s): E66.9 - Obesity, unspecified Status: Acute Assessment and Plan: This is complicating his other medical problems. (11) Hypovitaminosis D: Code(s): E55.9 - Vitamin D deficiency, unspecified Status: Acute Assessment and Plan: Vitamin-D level normal. Plan DVT prophylaxis with SCDs GI prophylaxis not indicated Code status full code Subjective Date/time seen: 10/20/22 11:39 Interval history: ?66-year-old with a history of arthritis, BPH, PE? now off of anticoagulation,? and COPD (108 PY, quit 09/2021) maintained on Anoro Ellipta. ? Assuming care. Chart reviewed. Patient feels shortness of breath is better. No chest pain but does have the right lower flank rib pain. Has a nonproductive cough. Does need assistance wa
[2022-10-20] MEDS: TAMSULOSIN HCL 0.4 MG CAPSULE PO (11:59)
[2022-10-20] MEDS: HYDROcodone/acetaminophen (*CRX) 5-325 MG TABLET 1 TAB PO (12:06)
[2022-10-20] MEDS: lisinopriL 20 MG TABLET PO (12:20)
[2022-10-20] MEDS: CELECOXIB 200 MG CAPSULE PO (12:20)
[2022-10-20] MEDS: ATORVASTATIN 10 MG TABLET PO (12:20)
[2022-10-20] MEDS: PERFLUTREN LIPID MICROSPHERES 1.5 ML VIAL DILUTED TO 10 ML TOTAL VOLUME IV PUSH (13:45)
--- NOTE | 2022-10-20 13:46 | IVDEFINITY ---
Prior to administration of IV Definity the patient was educated on the risks and benefits of the imaging enhancing agent including potential adverse side effects. The patient verbalized understanding. Allergies were verified. No exclusion criteria were identified and at least one of the following inclusion criteria were met: 1) physician request, 2) patient technically difficult to image (per the [place] [employer] guidelines of two or more segments not discernable within the apical view), or 3) questionable left ventricular function. ?
[2022-10-20] MEDS: MORPHINE SULFATE (*CRX) 4 MG/ML INJ IV PUSH ×2 (15:46→21:34)
[2022-10-20 16:43] LABS: Glucose Point of Care 217 mg/dl (65-105)
[2022-10-20] MEDS: INSULIN ASPART (*BKC) 100 UNITS/ML SUB-Q (17:20)
[2022-10-20] MEDS: PSYLLIUM POWDER PACKET 2 PACKET PO (17:21)
[2022-10-21] VITALS (10 sets, daily range): BP systolic 105–124; BP diastolic 70–73; PULSE 101–132; RESP 19–20; TEMP 36.6; O2SAT 86–93
[2022-10-21 08:36] LABS: Glucose Point of Care 221 mg/dl (65-105)
[2022-10-21] MEDS: INSULIN ASPART (*BKC) 100 UNITS/ML SUB-Q (08:49)
[2022-10-21] MEDS: lisinopriL 20 MG TABLET PO (08:53)
[2022-10-21] MEDS: TAMSULOSIN HCL 0.4 MG CAPSULE PO (08:53)
[2022-10-21] MEDS: ATORVASTATIN 10 MG TABLET PO (08:53)
[2022-10-21] MEDS: CELECOXIB 200 MG CAPSULE PO (08:53)
[2022-10-21] MEDS: UMECLIDINIUM/VILANTEROL 62.5-25 MCG ELLIPTA 1 PUFF INHALATION (08:59)
--- NOTE | 2022-10-21 10:45 | PM.PNPUL ---
Progress Note: A&P Assessment and Plan (1) Chronic obstructive pulmonary disease: Qualifiers: COPD type: unspecified COPD Qualified Code(s): J44.9 - Chronic obstructive pulmonary disease, unspecified Code(s): J44.9 - Chronic obstructive pulmonary disease, unspecified Status: Acute Assessment and Plan: Patient with a history of tobacco use at 108 pack years, quit September 2021, I have no PFTs. There is no bullous emphysema noted on his CT scan from 10/19/2021. Patient carries a diagnosis of COPD and is maintained on Anoro as an outpatient. TSH 0.84 on 07/16/2021. 10/19 Patient has shortness of breath after he had right chest wall trauma with rib fractures, no change in his chronic cough and phlegm production at 2 to 3 times a day and no wheezing. Currently the patient tells me he is breathing back to his baseline. I do not think this is a COPD exacerbation at this time I will discontinue the Solu-Medrol. I will continue the albuterol and ipratropium nebulizers at Q 6 hours. I do not feel he needs antibiotics from a pulmonary perspective. He does have urinary tract infection. Patient is currently on 2 L nasal cannula oxygen with saturations 93%. His hypoxemia may be related to COPD, rib fractures with splinting and lower lobe atelectasis. goal saturation 90-94%. Will follow his oxygen requirements during this hospitalization and he should have a formal home O2 assessment prior to discharge. Recommend ABG to assess for acute and or chronic hypercarbic respiratory failure. Regarding his acute right rib fractures the pain is controlled with morphine and hydrocodone at this time. 10/20 patient tells me he is breathing back to normal. He has his usual cough and productive in of clear phlegm with no wheezing. His white blood cell count is 11.3, creatinine is 0.7. ABG during the day yesterday on 2 L was 7.39/51/65. The patient does have evidence of hypercarbic respiratory failure with a PaCO2 of 51. He has current fractured right ribs with atelectasis and right-sided pleuritic pain, narcotic use, UTI which may be contributing to his hypercarbia. In addition he may have COPD and a sleep-related breathing disorder which will require outpatient PFTs and a split night sleep study. At this time I will not recommend nocturnal noninvasive ventilation until I can repeat a blood gas after he is at his baseline. This may take several weeks for him to resolve the rib fractures and to be pain free. Do not feel there is a COPD exacerbation or pneumonia. I have discontinued his azithromycin. He remains on ceftriaxone and has a UTI. I will discontinue his nebulizers and continue his Anoro Ellipta. I will order an echocardiogram. I will order an overnight oximetry on 2 L nasal cannula to assess his oxygen requirements at night. He will require home O2 assessment prior to discharge. echocardiogram with normal LV systolic function, grade 1 diastolic dysfunction, mildly enlarged left atrium and right atrium, RV not well visualized with normal systolic function, PASP 35. 2/2 patient states he is breathing back to his normal. He continues with right-sided rib fracture pain. This has improved. He has no wheezing on exam. Current saturations are 92% on 2 L. Patient had an overnight oximetry on 2 L with average saturation 90%, low saturation 63%, time with saturation less than or equal to 88% was 67 minutes. Patient's oxygen desaturation index was 7.6. Tracing with multiple sharp desaturations consistent with sleep related breathing disorder. Urine with Gram-negative bacilli. From a pulmonary perspective patient is ready for discharge on these pulmonary medications: Anoro Ellipta 62.5-25 at 1 puff q.day Rescue albuterol 2 puffs q.4 hours p.r.n. shortness of breath or wheezing. Home O2 at rest and with ambulation per formal home O2 assessment. Nasal cannula oxygen 4 L at night. If patient remains in th
--- NOTE | 2022-10-21 11:17 | HOMEO2EVAL ---
Evaluation was performed at [facility] Home Oxygen Evaluation RC: Home Oxygen (O2) Evaluation Start: 10/20/22 09:34 Freq: ONCE Status: Active Protocol: RPE Activity Type Activity Date Activity User E-sign Co-sign Detail Recorded Client Recorded Date Recorded By Document 10/21/22 10:15 [email or web address] [email or web address] 10/21/22 11:17 DJO Document 10/21/22 10:20 [email or web address] [email or web address] 10/21/22 11:17 DJO Document 10/21/22 10:25 [email or web address] [email or web address] 10/21/22 11:17 DJO Document 10/21/22 10:30 [email or web address] [email or web address] 10/21/22 11:17 DJO Document 10/21/22 10:35 [email or web address] [email or web address] 10/21/22 11:17 DJO Document 10/21/22 10:40 [email or web address] [email or web address] 10/21/22 11:17 DJO Document 10/21/22 10:55 [email or web address] [email or web address] 10/21/22 11:17 DJO 10/21/22 10/21/22 10/21/22 10:15 10:20 10:25 Home O2 Evaluation [Oxygen] -Test Phase Resting Resting Resting -Oxygen Delivery Room Air Nasal Cannula Nasal Cannula -Oxygen Flow Rate (L/min) 1 2 [Pulse Oximetry] -Pulse Oximetry (90-100 %) 86 L 88 L 90 [Pulse Rate] -Pulse Rate (60-100 beats/min) 102 H 101 H 102 H [Evaluation] -Activity Tolerance [Charges] -Treatment Charges O2 Evaluation - Inpatient 10/21/22 10/21/22 10/21/22 10:30 10:35 10:40 Home O2 Evaluation [Oxygen] -Test Phase Exercise Exercise Exercise -Oxygen Delivery Nasal Cannula Nasal Cannula Nasal Cannula -Oxygen Flow Rate (L/min) 2 3 4 [Pulse Oximetry] -Pulse Oximetry (90-100 %) 86 L 88 L 90 [Pulse Rate] -Pulse Rate (60-100 beats/min) 114 H 124 H 132 H [Evaluation] -Activity Tolerance Poor [Charges] -Treatment Charges 10/21/22 10:55 Home O2 Evaluation [Oxygen] -Test Phase Resting -Oxygen Delivery Nasal Cannula -Oxygen Flow Rate (L/min) 2 [Pulse Oximetry] -Pulse Oximetry (90-100 %) 90 [Pulse Rate] -Pulse Rate (60-100 beats/min) 104 H [Evaluation] -Activity Tolerance [Charges] -Treatment Charges
--- NOTE | 2022-10-21 11:43 | PCRCNOTE ---
Addendum entered by Adelaida Mooney CRTT 10/21/22 11:44: HOME OXYGEN SET UP WITH IV AND RESPIRATORY PHONE NUMBER Original Note: HOME OXYGEN AT 2 LITERS AT REST AND 4 LITERS WITH ACTIVITY.
[2022-10-21 12:08] LABS: Glucose Point of Care 170 mg/dl (65-105)
[2022-10-21] MEDS: MORPHINE SULFATE (*CRX) 4 MG/ML INJ IV PUSH (12:38)
--- NOTE | 2022-10-21 16:12 | PM.DS ---
DS: Admitting Diagnosis Discharge Date 10/21/22 Admitting Diagnosis Shortness of breath DS: Discharge Diagnosis Discharge Diagnosis (1) Acute on chronic respiratory failure: Code(s): J96.20 - Acute and chronic respiratory failure, unspecified whether with hypoxia or hypercapnia Status: Acute (2) Acute UTI: Code(s): N39.0 - Urinary tract infection, site not specified Status: Acute (3) Chronic obstructive pulmonary disease: Qualifiers: COPD type: unspecified COPD Qualified Code(s): J44.9 - Chronic obstructive pulmonary disease, unspecified Code(s): J44.9 - Chronic obstructive pulmonary disease, unspecified Status: Acute (4) Rib fractures: Code(s): S22.49XA - Multiple fractures of ribs, unspecified side, initial encounter for closed fracture Status: Acute Assessment and Plan: PT/OT consult Pain control with tylenol and norco as needed Continue symptomatic care (5) Essential hypertension: Code(s): I10 - Essential (primary) hypertension Status: Acute (6) Mixed hyperlipidemia: Code(s): E78.2 - Mixed hyperlipidemia Status: Acute (7) Type 2 diabetes mellitus without complications: Code(s): E11.9 - Type 2 diabetes mellitus without complications Status: Acute (8) Cirrhosis of liver without ascites: Code(s): K74.60 - Unspecified cirrhosis of liver Status: Acute (9) Personal history of transient ischemic attack (TIA), and 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 now off of anticoagulation and COPD here for SOB. Please see H&P for details. Hospital Course: Patient presents with shortness of breath. CTA chest showing no PE but mild ground glass opacities in the upper lobes. ABG 7.39/51/65 on 2L. Pulmonary consulted and appreciated their input. We held off on abx since PNA felt less likely. Did not clinically appear to have a COPD exacerbation. Suspected he had atelectasis from rib fractures and shallow breathing 2/2 pain. He also probably has a sleep disorder as well. We continued Anoro. He had a home O2 evaluation and Apnea link at night with O2. He need 2L O2 at rest, 4L O2 with exertion and 4L O2 with sleeping. Echo showing EF 60-65%, Grade I diastolic dysfunction and no pulmonary HTN. UA noted. UCx positive but final result pending. Treated with Rocephin. We continued Flomax. He does have a distant h/o left temporoparietal occipital infarct, no residual symptoms. We continued statin. He does take ASA daily and he was advised to continue this treatment. He overall did well and was able to be discharged 10/21/2022. Status at Discharge Cognitive/behavioral status at discharge: stable Time Spent with Patient Time attestation: Total time spent providing and/or coordinating discharge services: 35 minutes Time spent: Greater than 30 minutes Exam Narrative: AF 97.8 105/70 119 19 93% 2L Gen - NARD sitting up in chair Chest - distant BS, nml RR CV - RRR S1/S2 Abd - Soft, obese, NT Ext - No pedal edema. chronic venous skin changes Psych - Nml mood and affect Skin - Warm and dry DS: Data Data Completed and Pending Labs on day of discharge: Labs from last 24 hours 10/21/22 10/21/22 10/20/22 11:59 08:26 16:10 POC Capillary Glucose 170 H 221 H 217 H Preliminary micro results at discharge 10/19/22 06:27 Urine Culture - Preliminary Urine Catheterized Gram negative bacilli isolated Discharge Plan Discharge Attending physician on
[2022-10-21 16:46] LABS: Glucose Point of Care 148 mg/dl (65-105)
--- NOTE | 2022-10-25 07:05 | PC.NURSE ---
Urine cx shows proteus mirabilis. Susceptible to Omnicef. Pt sent home on this. Dr. Elizabeth tran.
== END 2022-10-21 17:40 | disposition home or self-care (01) | DRG 184 ==
LOC: ANHED 08:21 → ANH3MEDSUR 09:43
PROVIDERS: Emergency Medicine; Admitting Provider Student in an Organized Health Care Education/Training Program; Emergency Provider Emergency Medicine; PCP Internal Medicine; Visit Provider Internal Medicine
DX: S22.41XA Multiple fractures of ribs, right side, initial encounter for closed fracture (principal); J98.11 Atelectasis; N39.0 Urinary tract infection, site not specified; J44.9 Chronic obstructive pulmonary disease, unspecified; E78.5 Hyperlipidemia, unspecified; E55.9 Vitamin D deficiency, unspecified; E66.9 Obesity, unspecified; K74.60 Unspecified cirrhosis of liver; N40.1 Benign prostatic hyperplasia with lower urinary tract symptoms; R33.8 Other retention of urine; W19.XXXA Unspecified fall, initial encounter; Z20.822 Contact with and (suspected) exposure to COVID-19; Z96.649 Presence of unspecified artificial hip joint; Z86.711 Personal history of pulmonary embolism; Z87.891 Personal history of nicotine dependence; E11.9 Type 2 diabetes mellitus without complications; Z86.73 Personal history of transient ischemic attack (TIA), and cerebral infarction without residual deficits
CPT/HCPCS: 36415; 36600; 71045; 71275; 80048; 80053; 81001; 82306; 82805; 82948; 83036; 83605; 83880; 84484; 85025; 85610; 85730; 87077; 87086; 87186; 87636; 93005; 94618; 94640; 94762; 96365; 96366; 96367; 96375; 97161; 97165; 97530; 97535; 99285; A9270; C8929; G0378; J0456; J0696; J1815; J2270; J2930; J7030; Q9957; Q9967